=== PATIENT | female | born 1955 | race Caucasian/White ===

== ENCOUNTER → 2016-08-23 | Outpatient (CLI) | payer BC, OTHER ==
[~2016-08-23] MED LIST: ASPIRIN 32325 MG/TAB PO; CUTIVATE 60 ML60 ML; CYMBALTA 30MG30 MG PO; FLEXERIL10 MG PO; LYRICA 50MG CAP50 MG PO; MOBIC 7.5MG7.5 MG PO; [UNRECOGNIZED DRUG - OTHER] PO
== END ==
LOC: COL.RAD 12:18
DX: G31.84 Mild cognitive impairment of uncertain or unknown etiology (principal)

== ENCOUNTER → 2016-08-29 | Outpatient (CLI) | payer BC, OTHER | LOC: MC.RAD 13:40 | DX: Z12.31 Encounter for screening mammogram for malignant neoplasm of breast (principal); N63 Unspecified lump in breast ==

== ENCOUNTER → 2016-09-07 | Outpatient (CLI) | payer BC, OTHER | LOC: MC.RAD 14:00 | DX: Z12.39 Encounter for other screening for malignant neoplasm of breast (principal) ==

== ENCOUNTER 2016-11-08 18:56 | Emergency (ER) | payer BC, OTHER ==
[~2016-11-08] VITALS: Ht 170.2 cm; Wt 98.6 kg
[~2016-11-08 18:56] MED LIST changes: -LYRICA 50MG CAP50 MG PO; -MOBIC 7.5MG7.5 MG PO
[2016-11-08 19:01] VITALS: TEMP 98.3
[2016-11-08 20:28] LABS: BASO # 0.1 (0.0-0.2); BASO % 1.4 % (0.0-2.0); EOS # 0.3 (0.0-0.7); EOS % 3.5 % (0-4.0); GRAN # 4.4 (1.4-6.5); GRAN % 54.1 % (42.2-75.2); HEMATOCRIT 43.6 % (37.0-47.0); HEMOGLOBIN 14.1 g/dl (12.5-16.0); LYMPH # 2.8 (1.2-3.4); LYMPH % 34.7 % (20.0-51.0); MEAN CELL VOLUME 87 fl (80.0-100.0); MEAN CORPUSCULAR HEMOGLOBIN 28 pg (27.0-31.0); MEAN CORPUSCULAR HGB CONC 32 g/dl (33.0-37.0); MEAN PLATELET VOLUME 10.7 fl (7.4-10.4); MONO # 0.5 (0.1-0.6); MONO % 5.9 % (1.7-9.3); PLATELET COUNT 240 K/mm3 (130-400); RED BLOOD COUNT 5.02 M/mm3 (4.10-5.30); REDCELL DISTRIBUTION WIDTH-CV 13.1 % (11.5-14.5); WHITE BLOOD COUNT 8.1 K/mm3 (4.8-10.8)
[2016-11-08 20:46] LABS: ADJUSTED CALCIUM 9.1 mg/dL (8.4-10.2); BILIRUBIN,TOTAL 0.7 mg/dL (0.0-1.0); C-REACTIVE PROTEIN 0.9 mg/dL (0.0-0.9); CALCIUM 9.1 mg/dL (8.4-10.2); CREATININE, serum 0.9 mg/dL (0.52-1.25); POTASSIUM 3.9 mmol/L (3.4-5.0); TOTAL PROTEIN 7.8 gm/dL (6.4-8.2)
[2016-11-08 20:48] LABS: ERYTHROCYTE SEDIMENTATION RATE 14 mm/hr (0-30)
[2016-11-08] MEDS ORDERED: CYMBALTA 30MG30 MG PO (21:52)
[2016-11-08] MEDS ORDERED: MOBIC 7.5MG7.5 MG PO (21:53)
[2016-11-08] MEDS ORDERED: LYRICA 50MG CAP50 MG PO (21:53)
[2016-11-08 22:29] VITALS: BP 147/85; PULSE 64
== END 2016-11-08 22:37 | disposition home or self-care (01) ==
LOC: COL.ER 18:56
PROVIDERS: Emergency Medicine
DX: R51 Headache (principal); I10 Essential (primary) hypertension; Z90.710 Acquired absence of both cervix and uterus
CPT/HCPCS: J1200; J2550; J7030

== ENCOUNTER 2017-04-18 09:13 | Day surgery (SDC) | payer BC, OTHER ==
[~2017-04-18] VITALS: Ht 170.2 cm; Wt 97.9 kg
[~2017-04-18 09:13] MED LIST changes: +LYRICA 50MG CAP50 MG PO; +MOBIC 7.5MG7.5 MG PO
[2017-04-18 10:00] VITALS: BP 142/80; PULSE 68; TEMP 98.1
[2017-04-18] MEDS ORDERED: NORVASC 5MG5 MG/TAB PO (10:11)
[2017-04-18 10:20] VITALS: BP 142/80; PULSE 67; TEMP 97.8
[2017-04-18 11:50] VITALS: BP 131/73; PULSE 71
[2017-04-18 12:05] VITALS: BP 135/73; PULSE 68
== END 2017-04-18 12:25 | disposition home or self-care (01) ==
LOC: SDCO 09:13
DX: Z12.11 Encounter for screening for malignant neoplasm of colon (principal); D12.8 Benign neoplasm of rectum; K64.0 First degree hemorrhoids; K58.9 Irritable bowel syndrome, unspecified; I10 Essential (primary) hypertension
CPT/HCPCS: OP; J2250; J2405; J3010; J7030

== ENCOUNTER → 2017-11-03 | Outpatient (CLI) | payer BC, OTHER ==
[~2017-11-03] MED LIST changes: +NORVASC 5MG5 MG/TAB PO
== END ==
LOC: MC.RAD 07:40
DX: Z12.31 Encounter for screening mammogram for malignant neoplasm of breast (principal)